=== PATIENT | female | born 1990 | race Caucasian/White ===

== ENCOUNTER → 2021-09-24 10:49 | Outpatient (CLI) | payer BC, SELFPAY ==
--- NOTE | ~2021-09-24 | US_ITS ---
EXAMINATION: US OB /maternal detail DATE: 09/24/2021 11:39 INDICATION: survey TECHNIQUE: Multiple obstetric sonographic images performed. FINDINGS: No prior studies for comparison. There is a single living fetus in variable presentation. The placenta is anterior without placenta p revia. Amniotic fluid volume is subjectively normal. There is a questionable linear echogenic structu re inferior to the placenta, although this could represent artifact versus synechia or chorionic band . Recommend attention to this area on subsequent examination. cardiac activity and movement is noted with a heart rate of 142 beats per minute. The following anatomy was identified as normal: 4 chamber heart 3 vessel cord cord insertion kidneys urinary bladder stomach spine diaphragm ventricles cisterna magna cerebellum The following biometric data were obtained: BPD: 46mm corresponds to gestational age 19 weeks 6 days. Head circumference: 169 mm corresponds to gestational age 19 weeks 4 days. Abdominal circumference: 146 mm corresponds to gestational age 19 weeks 6 days. Femur length: 32 mm corresponds to gestational age 20 weeks 0 days. Head circumference to abdominal circumference ratio: 1.16 (normal range for expected gestational age is 1.08-1.26). Estimated weight: 317 grams +/- 48 grams using Hadlock method. IMPRESSION: 1: Single living intrauterine with an estimated gestational age of 19weeks 6days by current ultrasound measurements, with an EDC of 02/12/2022 in variable presentation. 2. Normal survey. 3: Questionable linear echogenic structure inferior to the placenta, although this could represent ar tifact versus synechia or chorionic band. Recommend attention to this area on subsequent examination. Reviewed, dictated and finalized at location A. IMPRESSION: 1: Single living intrauterine with an estimated gestational age of 19 weeks 6days by current ultrasound measurements, with an EDC of 02/12/2022 in va riable presentation. 2. Normal survey. 3: Questionable linear echogenic structure inferior to the placenta, although t his could represent artifact versus synechia or chorionic band. Recommend atten tion to this area on subsequent examination.
== END ==
PROVIDERS: PCP Obstetrics & Gynecology Gynecologic Oncology; Visit Provider Obstetrics & Gynecology Gynecologic Oncology
DX: Z36.9 Encounter for antenatal screening, unspecified (principal); Z3A.19 19 weeks gestation of pregnancy
CPT/HCPCS: 76805

== ENCOUNTER → 2021-10-17 15:04 | Outpatient (CLI) | payer BC, SELFPAY ==
--- NOTE | ~2021-10-17 | US_ITS ---
EXAMINATION: US OB limited DATE: 10/17/2021 15:30 INDICATION: Encounter for other specified screening. TECHNIQUE: Real-time ultrasound of the pelvis was performed. COMPARISON: Ultrasound 09/24/2021 FINDINGS: There is a single fetus in breech presentation. The placenta is anterior, 6.7 cm from the cervix. Th ere is a 3.4 x 1.0 x 1.9 cm hypoechoic mass in the placenta. The cervical length is 4.8 cm on transab dominal images. heart rate is 155 beats per minute (bpm). The amniotic fluid index is cm, which is normal. IMPRESSION: 1. Single living fetus in breech presentation. 2. 3.4 cm hypoechoic mass in the placenta, most likely a venous levine. Reviewed, dictated and finalized at location A.
== END ==
PROVIDERS: PCP Obstetrics & Gynecology Gynecologic Oncology; Visit Provider Obstetrics & Gynecology Gynecologic Oncology
DX: Z36.89 Encounter for other specified antenatal screening (principal); Z3A.00 Weeks of gestation of pregnancy not specified
CPT/HCPCS: 76815